=== PATIENT | male | born 1980 | race Caucasian/White ===

== ENCOUNTER 2017-03-16 03:59 | Emergency (ER) | payer SELFPAY ==
[2017-03-16 04:11] VITALS: BP 131/88; PULSE 97; RESP 18; TEMP 98.9; O2SAT 98
--- NOTE | 2017-03-16 04:16 | C.PDOC ---
History Of Present Illness Patient c/o painful lump in the external ear canal of the right ear x 3 days. Patient denies fever. Time Seen by Provider: 03/16/17 04:13 Chief Complaint (Nursing): ENT Problem Past Medical History Reviewed: Historical Data, Nursing Documentation, Vital Signs Vital Signs: Last Vital Signs Temp 98.9 F 03/16/17 04:08 Pulse 97 H 03/16/17 04:08 Resp 18 03/16/17 04:08 BP 131/88 03/16/17 04:08 Pulse Ox 98 03/16/17 04:18 - Medical History PMH: No Chronic Diseases Family History: States: No Known Family Hx - Social History Hx Tobacco Use: Yes Hx Alcohol Use: Yes Hx Substance Use: No - Immunization History Hx Tetanus Toxoid Vaccination: Yes Hx Influenza Vaccination: Yes Hx Pneumococcal Vaccination: No Review Of Systems Except As Marked, All Systems Reviewed And Found Negative. Physical Exam - Physical Exam Appears: Well, Non-toxic, No Acute Distress Skin: Normal Color, Warm Head: Atraumatic, Normacephalic Eye(s): bilateral: Normal Inspection Ear(s): Left: Normal, Right: Other (erythematous lump, tender, indurated skin consistant with early abscess of the external canal) Nose: Normal Oral Mucosa: Moist Throat: Normal, No Erythema Neck: Normal ROM, Supple Lymphatic: No Adenopathy Neurological/Psych: Oriented x3, Normal Speech, Normal Cognition, Normal Cranial Nerves ED Course And Treatment O2 Sat by Pulse Oximetry: 98 Progress Note: Patient was treated with Clindamycin and Bactrtoban cream and was d/c home with ENT follow up. Disposition - Disposition Referrals: Bunny Nolan MD [Staff Provider] - Disposition: HOME/ ROUTINE Disposition Time: 04:16 Condition: STABLE Additional Instructions: Follow up with ENT within 1-2 days. Return to ED if feel worse. Prescriptions: Mupirocin 2% Ointment [Bactroban Ointment] 1 appl TP BID #1 tube Clindamycin [Cleocin] 300 mg PO Q6 #28 cap Instructions: Abscess (ED) Forms: [employer] (Tristanian) - Clinical Impression Clinical Impression: Abscess of right ear canal
[2017-03-16] MEDS ORDERED: Bacitracin 500 Units/gm Oint Foilpak UD ONE (04:21)
== END 2017-03-16 04:30 | disposition home or self-care (01) ==
LOC: C.ER 03:59
DX: H60.01 Abscess of right external ear (principal); Z87.891 Personal history of nicotine dependence

== ENCOUNTER 2017-12-22 08:24 | Emergency (ER) | payer SELFPAY ==
[2017-12-22 08:32] VITALS: RESP 20
[2017-12-22] MEDS ORDERED: Naproxen 550 mg Tab PO STA (08:59)
[2017-12-22] MEDS ORDERED: Naproxen 550 mg Tab PO ONE (09:05)
--- NOTE | 2017-12-22 09:13 | RAD ---
Date of service: 12/22/2017 PROCEDURE: Radiographs of the Right Shoulder HISTORY: right shoulder pain COMPARISON: No prior. FINDINGS: BONES: Normal. No fracture. JOINTS: Normal. Glenohumeral and acromioclavicular joints preserved. No osteoarthritis. SOFT TISSUES: Normal. OTHER FINDINGS: None. IMPRESSION: Normal radiographs of the right shoulder.
--- NOTE | 2017-12-22 09:42 | C.PDOC ---
History Of Present Illness 37-year-old male, presents to the emergency department, complaining of right shoulder pain x2 days. Pain is worse in posterior shoulder, and worsens with movement of shoulder, particularly abduction. He denies any trauma or injuries. 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 Denies CP, sob, cough, fevers, rash. No other complaints at this time. Time Seen by Provider: 12/22/17 08:30 Chief Complaint (Nursing): Upper Extremity Problem/Injury History Per: Patient History/Exam Limitations: no limitations Onset/Duration Of Symptoms: Days Past Medical History Reviewed: Historical Data, Nursing Documentation, Vital Signs Vital Signs: Last Vital Signs Temp 98.9 F 12/22/17 08:31 Pulse 92 H 12/22/17 08:31 Resp 20 12/22/17 08:31 BP 149/97 H 12/22/17 08:31 Pulse Ox 100 12/22/17 08:31 Family History: States: No Known Family Hx - Social History Hx Tobacco Use: Yes Hx Alcohol Use: Yes Hx Substance Use: No - Immunization History Hx Tetanus Toxoid Vaccination: Yes Hx Influenza Vaccination: Yes Hx Pneumococcal Vaccination: No Review Of Systems Musculoskeletal: Positive for: Shoulder Pain Physical Exam - Physical Exam Appears: Non-toxic, No Acute Distress Skin: Warm, Dry, No Rash Head: Atraumatic, Normacephalic Eye(s): bilateral: Normal Inspection Nose: Normal Oral Mucosa: Moist Lips: Normal Appearing Neck: Normal ROM Respiratory: No Accessory Muscle Use Extremity: Capillary Refill (<2 seconds), No Deformity, No Swelling, Other (tender to palpation, right shoulder over superior asp of scapula. No deformity/swelling, worse with abduction) Pulses: Left Brachial: Normal, Right Brachial: Normal, Left Radial: Normal, Right Radial: Normal Neurological/Psych: Oriented x3, Normal Speech ED Course And Treatment O2 Sat by Pulse Oximetry: 100 Pulse Ox Interpretation: Normal (RA) Progress Note: XR ordered and reviewed. pt treated with Naprosyn and Flexeril. Disposition Counseled Patient/Family Regarding: Studies Performed, Diagnosis, Need For Followup, Rx Given - Disposition Referrals: [facility] [Outside] Reilly Hernandez MD [Staff Provider] - Disposition: HOME/ ROUTINE Disposition Time: 09:45 Condition: STABLE Additional Instructions: FOLLOW UP WITH ORTHOPEDICS WITHIN 1 WEEK USE MEDICATIONS NEEDED. FLEXERIL CAN MAKE YOU DROWSY RETURN TO ER IF SYMPTOMS WORSEN Prescriptions: Cyclobenzaprine [Flexeril] 10 mg PO BID PRN #15 tab PRN Reason: Muscle Spasm Naproxen 375 mg PO BID PRN #20 tablet PRN Reason: pain Instructions: Shoulder Sprain (DC) Forms: [employer] (Cuban), Work Excuse Print Language: TAJIK - POA Present On Arrival: None - Clinical Impression Clinical Impression: Right shoulder strain - Scribe Statement The provider has reviewed the documentation as recorded by the Scribe (Johan Brewer) Provider Attestation: All medical record entries made by the Scribe were at my direction and personally dictated by me. I have reviewed the chart and agree that the record accurately reflects my personal performance of the history, physical exam, medical decision making, and the department course for this patient. I have also personally directed, reviewed, and agree with the discharge instructions and disposition.
[2017-12-22 09:52] VITALS: BP 144/96; PULSE 84; TEMP 98.6
[2017-12-22 10:20] VITALS: O2SAT 100
== END 2017-12-22 10:09 | disposition home or self-care (01) ==
LOC: C.ER 08:24
DX: S46.911A Strain of unspecified muscle, fascia and tendon at shoulder and upper arm level, right arm, initial encounter (principal); X58.XXXA Exposure to other specified factors, initial encounter